=== PATIENT | female | born 1975 | race Caucasian/White ===

== ENCOUNTER 2017-10-19 02:01 | Inpatient (IN) | payer SELFPAY ==
[~2017-10-19] VITALS: Ht 154.9 cm; Wt 64.5 kg
[2017-10-19 02:07] VITALS: Ht 154.9 cm; Wt 64.5 kg
[2017-10-19 03:31] LABS: BASOPHIL % 0.2 % (0-2); PLATELET COUNT 203 x10^3mcL (130-400); RED CELL DISTRIBUTION WIDTH 13.1 % (11.5-14.5)
[2017-10-19 03:43] LABS: CALCIUM 8.5 mg/dL (8.5-10.1); CARBON DIOXIDE 21.9 mmol/L (21-32); CHLORIDE SERUM 105 mmol/L (98-107); GFR1 > 60 mL/min; GLUCOSE SERUM 113 mg/dL (74-106); POTASSIUM SERUM 3.1 mmol/L (3.5-5.1); SODIUM SERUM 142 mmol/L (136-145)
[2017-10-19 03:47] LABS: ALKALINE PHOSPHATASE 68 U/L (46-116); ALT/SGPT 89 U/L (14-59); AST/SGOT 186 U/L (15-37); BILIRUBIN TOTAL 0.38 mg/dL (0.20-1.00); LIPASE 226 IU/L (73-393); TOTAL PROTEIN, SERUM 6.7 g/dL (6.4-8.2)
[2017-10-19 03:57] LABS: ALBUMIN 3.2 g/dL (3.4-5.0)
[2017-10-19 08:49] LABS: T3 TOTAL 0.88 ng/mL
[2017-10-19 09:00] LABS: CHOLESTEROL/HDL RATIO 2.6; MAGNESIUM 2.1 mg/dL (1.8-2.4)
[2017-10-19 09:07] LABS: PHOSPHOROUS 0.8 mg/dL (2.5-4.9)
[2017-10-19 09:10] LABS: FREE T4 1.56 ng/dL (0.76-1.46); FREE THYROXINE INDEX 4.2 ug/dL (1.4-4.5)
[2017-10-19 13:19] VITALS: BP 120/39
[2017-10-19 13:23] VITALS: BP 103/71
[2017-10-19 17:22] VITALS: BP 96/63
[2017-10-19 19:54] LABS: UA SPECIFIC GRAVITY >=1.030 (1.005-1.035); microscopic required? YES; urine erythrocyte 3+ (NEGATIVE)
[2017-10-19 20:03] LABS: AMPHETAMINE QUAL UR NONE DETECTED (NEG <=1000)
[2017-10-19 21:07] VITALS: BP 102/51
[2017-10-20 05:48] VITALS: BP 94/61
[2017-10-20 06:27] LABS: CALCIUM 7.4 mg/dL (8.5-10.1); CARBON DIOXIDE 25.9 mmol/L (21-32); CHLORIDE SERUM 112 mmol/L (98-107); CREATININE SERUM 0.8 mg/dL (0.6-1.0); GFR1 > 60 mL/min; GLUCOSE SERUM 114 mg/dL (74-106); PHOSPHOROUS 2.7 mg/dL (2.5-4.9); POTASSIUM SERUM 4.7 mmol/L (3.5-5.1); SODIUM SERUM 143 mmol/L (136-145)
[2017-10-20 07:03] LABS: BASOPHIL % 0.2 % (0-2); PLATELET COUNT 158 x10^3mcL (130-400); RED CELL DISTRIBUTION WIDTH 13.4 % (11.5-14.5)
[2017-10-20 08:00] VITALS: BP 95/40
[2017-10-20 13:30] VITALS: BP 95/60
[2017-10-20 17:23] VITALS: BP 103/35
[2017-10-20 20:13] VITALS: BP 106/55
[2017-10-21 06:01] VITALS: BP 128/66
[2017-10-21 06:57] LABS: BASOPHIL % 0.4 % (0-2); RED CELL DISTRIBUTION WIDTH 13.4 % (11.5-14.5)
[2017-10-21 07:05] LABS: MAGNESIUM 2.1 mg/dL (1.8-2.4); PHOSPHOROUS 3.9 mg/dL (2.5-4.9)
[2017-10-21 07:19] LABS: PLATELET COUNT 127 x10^3mcL (130-400)
[2017-10-21 07:39] LABS: ALKALINE PHOSPHATASE 47 U/L (46-116); ALT/SGPT 172 U/L (14-59); AST/SGOT 87 U/L (15-37); BILIRUBIN TOTAL 0.2 mg/dL (0.20-1.00); CALCIUM 7.6 mg/dL (8.5-10.1); CHLORIDE SERUM 109 mmol/L (98-107); CREATININE SERUM 0.8 mg/dL (0.6-1.0); GFR1 > 60 mL/min; GLUCOSE SERUM 92 mg/dL (74-106); POTASSIUM SERUM 4.3 mmol/L (3.5-5.1); SODIUM SERUM 142 mmol/L (136-145)
[2017-10-21 07:49] LABS: ALBUMIN 2.4 g/dL (3.4-5.0)
[2017-10-21 08:53] VITALS: BP 114/63
[2017-10-21 17:18] VITALS: BP 95/63
[2017-10-21 20:19] VITALS: BP 97/59
[2017-10-22 05:20] VITALS: BP 124/68
[2017-10-22 05:41] LABS: BASOPHIL % 0.6 % (0-2); PLATELET COUNT 131 x10^3mcL (130-400); RED CELL DISTRIBUTION WIDTH 13.7 % (11.5-14.5)
[2017-10-22 06:03] LABS: CALCIUM 7.7 mg/dL (8.5-10.1); CARBON DIOXIDE 28.7 mmol/L (21-32); CHLORIDE SERUM 110 mmol/L (98-107); CREATININE SERUM 0.7 mg/dL (0.6-1.0); GFR1 > 60 mL/min; GLUCOSE SERUM 95 mg/dL (74-106); MAGNESIUM 2.1 mg/dL (1.8-2.4); PHOSPHOROUS 3.4 mg/dL (2.5-4.9); POTASSIUM SERUM 3.8 mmol/L (3.5-5.1); SODIUM SERUM 143 mmol/L (136-145)
[2017-10-22 06:07] LABS: BILIRUBIN DIRECT 0.06 mg/dL (0.0-0.2); BILIRUBIN TOTAL 0.2 mg/dL (0.20-1.00)
[2017-10-22 06:08] LABS: ALBUMIN 2.4 g/dL (3.4-5.0); TOTAL PROTEIN, SERUM 4.9 g/dL (6.4-8.2)
[2017-10-22 08:21] VITALS: BP 102/62
[2017-10-22] MEDS ORDERED: MOT800 PO (11:48)
[2017-10-22 12:13] VITALS: BP 103/70
[2017-10-22 12:37] VITALS: BP 103/70
== END 2017-10-22 16:15 | disposition home or self-care (01) | DRG 418 ==
LOC: ED 02:01 → DU 06:40 → MU 06:40 → DU 07:54 → MU 10-20 20:41
PROVIDERS: Emergency Medicine; Family Medicine; Student in an Organized Health Care Education/Training Program; Surgery
PROC: 0FT44ZZ Resection of Gallbladder, Percutaneous Endoscopic Approach (ICD-10-PCS; principal; 2017-10-20 10:30)
DX: K80.00 Calculus of gallbladder with acute cholecystitis without obstruction (principal); E44.0 Moderate protein-calorie malnutrition; Z88.8 Allergy status to other drugs, medicaments and biological substances; K21.9 Gastro-esophageal reflux disease without esophagitis; E87.6 Hypokalemia; E83.39 Other disorders of phosphorus metabolism; R31.9 Hematuria, unspecified; D64.9 Anemia, unspecified; E87.8 Other disorders of electrolyte and fluid balance, not elsewhere classified; E83.51 Hypocalcemia; Z68.28 Body mass index [BMI] 28.0-28.9, adult
CPT/HCPCS: 83880; 84439; J0690; J0694; J0696; J1200; J1644; J1885; J2175; J2250; J2270; J2405; J2543; J2930; J3010; J3490; J7030; Q0092; Q9967